=== PATIENT | female | born 1960 | race Caucasian/White ===

== ENCOUNTER 2017-01-20 08:04 | Emergency (ER) | payer BC, OTHER ==
[2017-01-20 08:08] VITALS: TEMP 36.7; Ht 157.5 cm
--- NOTE | 2017-01-20 08:20 | EMERGENCY ROOM VISIT NOTE ---
History Report prepared by Cecyibsanchez: Yomi Garcia Under the Supervision of: Dr. Pepe Chowdhury M.D. First contact with patient: 08:11 Chief Complaint: ANKLE PAIN Stated Complaint: FELL DOWN STAIRS,R ANKLE History of Present Illness The patient is a 56 year old female who presents to the Emergency Room with complaints of constant right ankle pain that started at 0720 this morning. She rates her pain as a 7/10 in severity. The patient states that she was not paying attention because she was on her cell phone when she fell down 2 or 3 steps. She denies hitting her head but admits to nausea and right ankle pain following the incident. The patient denies any loss of consciousness, neck pain , chest pain, shortness of breath, abdominal pain, head pain, arm or hip injury. Source of History: patient Onset: 0720 this morning Position: ankle (right) Symptom Intensity: 7/10 Timing: constant Associated Symptoms: + nausea, No LOC, No headache, No chest pain, No SOB, No abdominal pain Review of Systems See HPI for pertinent positives & negatives. A total of 10 systems reviewed and were otherwise negative. Past Medical & Surgical Medical Problems: (1) Menorrhagia Surgical Problems: (1) History of hysteroscopy Old medical records were reviewed. Nurse's notes were reviewed and I agree with. Family History Patient reports no known family medical history. Social History Smoking Status: Never Smoker Current/Historical Medications Scheduled Escitalopram (Lexapro), 10 MG PO DAILY Multivitamin (Multivitamin), 1 TAB PO DAILY Scheduled PRN Oxycodone Immediate Rel Tab (Roxicodone Ir), 1-2 TAB PO Q4H PRN for Severe Pain Allergies Coded Allergies: No Known Allergies (Verified , 01/20/17) Physical Exam Vital Signs Date Time Temp Pulse Resp B/P (MAP) Pulse Ox O2 Delivery O2 Flow Rate FiO2 01/20/17 09:28 68 16 122/70 98 01/20/17 08:08 36.7 66 18 113/70 97 Room Air Physical Exam General: Well developed well nourished middle aged female in no acute distress, breathing comfortably on room air. Normal speech HEENT: Normal cephalic atraumatic. Pupils are equal round and reactive to light. Extraocular movements are intact. Oropharynx is pink with moist mucous membranes. No swelling of the mouth lips or tongue. Neck: Supple with a midline trachea. No meningeal signs or stiffness, no JVD or bruits. No Stridor. Chest: Clear to auscultation bilaterally. No wheezes or rhonchi. No increased work of breathing. Heart: regular rate and rhythm. Abdomen: Soft nontender, nondistended without rebound guarding or rigidity. Extremities: Moderate swelling and tenderness to lateral malleolus, No tenderness to knee, proximal tibia or fibula, and 5th metatarsal. No cyanosis clubbing or edema. No calf tenderness or assymetry. Normal distal pulses. Spine/Back. Non tender to palpation. No CVA tenderness Skin: Good turgor without rashes. Neurologic exam: Cranial nerves two through 12 are intact. Motor and sensation are intact and symmetrical throughout. Medical Decision & Procedures ER Provider Diagnostic Interpretation: X-ray results as stated below per interpretation by me and the radiologist: RIGHT ANKLE MIN 3 VIEWS ROUTINE CLINICAL HISTORY: INJURY Right trauma. Pain. COMPARISON: None. DISCUSSION: Oblique nondisplaced fracture distal fibula. Ankle mortise is aligned anatomically. All remaining osseous structures are unremarkable. Lateral soft tissue edema IMPRESSION: Oblique nondisplaced fracture distal fibula. Electronically signed by: Jose A Bray M.D. 01/20/2017 8:35 AM Dictated Date/Time: 01/20/2017 8:35 AM ED Course 0805: Past medical records reviewed. The patient was evaluated in room B02, and a complete history and physical examination were performed. 0858: I reevaluated the patient and she is resting comfortably. I discussed the patient's results and treatment plan with her and I will send her to an orthopedist. She verbalized agreement of the treatment plan. The patient was discharged home. Medical Decision Differentials include, but are not limited to; ankle sprain, ankle fraction, contusion Medication Reconciliation: I attest that I have personally reviewed the patient' s current medication list. Blood pressure Screening: Patient was found to have normal blood pressure on screening and does not require follow-up. This patient suffered a mechanical fall and has pain along the lateral right ankle. There is no tenderness of the fifth metatarsal. She is neurologically and neurovascularly intact. No evidence of compartment syndrome. X-rays were obtained as well as ice was applied she was offered pain medication while in the ER but declined. She does have a distal fibula fracture at the level of the joint. She is no proximal tenderness. I do think she needs to follow-up with an orthopedist given the location the joint is possible she could need surgery. Our case management team has called [facility] as they are on- call and Dr. Parker will see the patient in office now. In light of this, I will put a ankle splint and she may need something more permanent but this will get her over there as well as crutches. She should rest ice and elevate. Follow-up immediately with the orthopedist use ibuprofen for pain. For breakthrough pain, she can use OxyIR 5 mg, one or 2 pills every 4-6 hours as needed. She was warned that it could make her drowsy and do not take before drinking, driving, working. She was happy with the plan and discharged home with close follow-up now. Impression Primary Impression: Ankle fracture Scribe Attestation The scribe's documentation has been prepared under my direction and personally reviewed by me in its entirety. I confirm that the note above accurately reflects all work, treatment, procedures, and medical decision making performed by me. Departure Information Dispostion Home / Self-Care Prescriptions Oxycodone Immediate Rel Tab (ROXICODONE IR) 5 Mg Tab 1-2 TAB PO Q4H Y for Severe Pain, #24 TAB Prov: Pepe Chowdhury M.D. 01/20/17 Referrals Thu Hernandez (PCP) Forms HOME CARE DOCUMENTATION FORM, IMPORTANT VISIT INFORMATION Patient Instructions My [facility] Additional Instructions Follow-up with Dr. Parker at [facility] now. He is expecting you. Rest. Ice. Elevate. Use splint and crutches for comfort Use ibuprofen 400 mg every 6 hours, take with food For more severe pain, use OxyIR 5 mg, one or 2 pills every 4-6 hours as needed OxyIR may make you drowsy do not take before drinking, driving, working Return if: Increasing pain or swelling, numbness or weakness, worsening ofsymptoms, any new problems or concerns.
--- NOTE | 2017-01-20 08:37 | DIAGNOSTIC IMAGING REPORT ---
RIGHT ANKLE MIN 3 VIEWS ROUTINE CLINICAL HISTORY: INJURY Right trauma. Pain. COMPARISON: None. DISCUSSION: Oblique nondisplaced fracture distal fibula. Ankle mortise is aligned anatomically. All remaining osseous structures are unremarkable. Lateral soft tissue edema IMPRESSION: Oblique nondisplaced fracture distal fibula. Electronically signed by: Jose A Bray M.D. 01/20/2017 8:35 AM Dictated Date/Time: 01/20/2017 8:35 AM
[2017-01-20] MEDS ORDERED: MULT-506 PO (08:44)
[2017-01-20] MEDS ORDERED: ESCI10TA17 PO (08:44)
[2017-01-20] MEDS ORDERED: OXYC1TAB3 PO (09:16)
[2017-01-20 09:28] VITALS: BP 122/70; PULSE 68; O2SAT 98
== END 2017-01-20 09:29 | disposition home or self-care (01) ==
LOC: C.EDB 08:06
DX: S82.434A Nondisplaced oblique fracture of shaft of right fibula, initial encounter for closed fracture (principal); W10.9XXA Fall (on) (from) unspecified stairs and steps, initial encounter; Y93.89 Activity, other specified; Z79.899 Other long term (current) drug therapy

== ENCOUNTER → 2017-02-01 | Outpatient (CLI) | payer BC, OTHER ==
[~2017-02-01] MED LIST: ESCI10TA17 PO; MULT-506 PO; OXYC1TAB3 PO
--- NOTE | 2017-02-01 16:13 | MAMMOGRAPHY REPORT ---
BILATERAL DIGITAL SCREENING MAMMOGRAM TOMOSYNTHESIS WITH CAD: 02/01/2017 CLINICAL HISTORY: Routine screening. TECHNIQUE: Breast tomosynthesis in addition to standard 2D mammography was performed. Current study was also evaluated with a Computer Aided Detection (CAD) system. COMPARISON: Comparison is made to exams dated: 01/31/2016 mammogram, 01/28/2015 mammogram, 01/16/2014 ma mmogram - [facility], 01/15/2014 mammogram, 12/26/2010 mammogram, and 12/20/2009 mammog le - [facility]. BREAST COMPOSITION: There are scattered areas of fibroglandular density in both breasts. FINDINGS: No suspicious masses, calcifications, or areas of architectural distortion are noted in ei ther breast. There has been no significant interval change compared to prior exams. IMPRESSION: ACR BI-RADS CATEGORY 1: NEGATIVE There is no mammographic evidence of malignancy. A 1 year screening mammogram is recommended. The pa tient will receive written notification of the results. Approximately 10% of breast cancers are not detected with mammography. A negative mammographic report should not delay biopsy if a clinically suggestive mass is present. Maxine Soler M.D. ah/:02/01/2017 14:54:31 Ragman: Devin WILDER(R)(M), [facility] letter sent: Normal 1/2 BI-RADS Code: ACR BI-RADS Category 1: Negative
== END | disposition home or self-care (01) ==
LOC: C.MAMM 09:37
PROVIDERS: ATTEND Physician Assistant
DX: Z12.31 Encounter for screening mammogram for malignant neoplasm of breast (principal)

== ENCOUNTER → 2018-02-02 | Outpatient (CLI) | payer BC ==
[~2018-02-02] MED LIST changes: -OXYC1TAB3 PO
--- NOTE | 2018-02-03 07:55 | MAMMOGRAPHY REPORT ---
BILATERAL DIGITAL SCREENING MAMMOGRAM TOMOSYNTHESIS WITH CAD: 02/02/2018 CLINICAL HISTORY: Routine screening. Patient has no complaints. TECHNIQUE: The study was acquired using full field digital technology and interpreted from soft copy. Breast tomosynthesis in addition to standard 2D mammography was performed. Current study was also ev aluated with a Computer Aided Detection (CAD) system. COMPARISON: Comparison is made to exams dated: 02/01/2017 mammogram, 01/31/2016 mammogram, 01/28/2015 m ammogram, 12/26/2010 mammogram, 12/20/2009 mammogram - [facility], and 12/20/2007. BREAST COMPOSITION: There are scattered areas of fibroglandular density in both breasts. FINDINGS: No suspicious masses, calcifications, or areas of architectural distortion are noted in either breast . There has been no significant interval change compared to prior exams. IMPRESSION: ACR BI-RADS CATEGORY 1: NEGATIVE There is no mammographic evidence of malignancy. A 1 year screening mammogram is recommended.( 019) The patient will receive written notification of the results. Some breast cancers are not detected with mammography. A negative mammographic report should not van y biopsy if a clinically suggestive mass is present. Maxine Soler M.D. ah/:02/02/2018 10:29:00 Box Blank Machine Operator: RT Phuc(Fareed)(M), [facility] letter sent: Normal 1/2 BI-RADS Code: ACR BI-RADS Category 1: Negative
== END | disposition home or self-care (01) ==
LOC: C.MAMM 09:37
PROVIDERS: ATTEND Physician Assistant
DX: Z12.31 Encounter for screening mammogram for malignant neoplasm of breast (principal)